=== PATIENT | female | born 1960 ===

== ENCOUNTER → 2021-08-13 14:41 | Outpatient (BNVA) | payer MEDICARE, BC, SELFPAY | PROVIDERS: Visit Provider Nurse Practitioner | DX: Z51.81 Encounter for therapeutic drug level monitoring (principal); R26.89 Other abnormalities of gait and mobility; R42 Dizziness and giddiness | CPT/HCPCS: 36415; 80048; 80175; 80201; 82607; 85025; 99204 ==